=== PATIENT | female | born 1990 | race Caucasian/White ===

== ENCOUNTER → 2017-03-05 | Outpatient (CLI) | payer OTHER ==
--- NOTE | 2017-03-05 13:06 | CR ---
EXAMINATION: Two-view chest (PA and Lateral views). HISTORY: Asthma. FINDINGS: The trachea is midline. The cardiomediastinal silhouette is within normal limits. No pulmonary infil trates, effusions or pneumothorax. Osseous structures appear unremarkable. IMPRESSION: No acute cardiopulmonary process.
== END ==
LOC: MW.CHFP 10:52
PROVIDERS: ATTEND Emergency Medicine
DX: J45.40 Moderate persistent asthma, uncomplicated (principal); R50.9 Fever, unspecified
CPT/HCPCS: 36415; 71020; 71020-26; 85025

== ENCOUNTER 2017-11-03 21:21 | Emergency (ER) | payer OTHER ==
--- NOTE | 2017-11-03 21:40 | EDM.PDOC ---
ED HPI GENERAL MEDICAL PROBLEM - General Chief Complaint: Respiratory Problem Stated Complaint: PT HAS DIFFICULTY BREATHING Time Seen by Provider: 11/03/17 21:39 Source of Information: Reports: Patient History Limitations: Reports: No Limitations - History of Present Illness INITIAL COMMENTS - FREE TEXT/NARRATIVE: HISTORY AND PHYSICAL: History of present illness: 27-year-old female presenting to the emergency department with a chief complaint of shortness of breath with past medical history of asthma. Patient states the past 2 days she has had increasing shortness breath. She does take Symbicort as well as her rescue inhaler and a nebulizer. She states that today it just seemed to be getting worse so she came into the emergency department. She has no other medical issues and states it she has been feeling well otherwise. She denies any nausea, vomiting, diarrhea, fever, chest pain, palpitations, syncopal episodes, or focal neurologic episodes. Patient was on oxygen eating 92% on room air when presenting to emergency room. Review of systems: As per history of present illness and below otherwise all systems reviewed and negative. Past medical history: As per history of present illness and as reviewed below otherwise noncontributory. Surgical history: As per history of present illness and as reviewed below otherwise noncontributory. Social history: No reported history of drug or alcohol abuse. Family history: As per history of present illness and as reviewed below otherwise noncontributory. Physical exam: HEENT: Atraumatic, normocephalic, pupils reactive, negative for conjunctival pallor or scleral icterus, mucous membranes moist, throat clear, neck supple, nontender, trachea midline. Lungs: Diffuse wheezing heard throughout all lung rich. Decreased air movement , normal respiratory effort. No signs of cyanosis. Heart: S1S2, regular, negative for clicks, rubs, or JVD. Abdomen: Soft, nondistended, nontender. Negative for masses or hepatosplenomegaly. Negative for costovertebral tenderness. Pelvis: Stable nontender. Genitourinary: Deferred. Rectal: Deferred. Extremities: Atraumatic, negative for cords or calf pain. Neurovascular unremarkable. Neuro: Awake, alert, oriented. Cranial nerves II through XII unremarkable. Cerebellum unremarkable. Motor and sensory unremarkable throughout. Exam nonfocal. Diagnostics: [] Therapeutics: DuoNeb and 125 mg Solu-Medrol Impression: Acute Asthma exacerbation After given one treatment of DuoNeb as well as 25 mg Solu-Medrol patient wheezing had improved dramatically. Her oxygen saturation was 93% on oxygen ORA and felt much improved. She does have an appointment with her primary care physician Dr. Willard tomorrow. I did give her prescription for prednisone 40 mg by mouth daily 4 days. Instructed her to return to the emergency department if she had any future symptoms. Patient was discharged in good condition with follow-up instructions and prescription for prednisone. The following information is given to patients seen in the emergency department who are being discharged to home. This information is to outline your options for follow-up care. We provide all patients seen in our emergency department with a follow-up referral. The need for follow-up, as well as the timing and circumstances, are variable depending upon the specifics of your emergency department visit. If you don't have a primary care physician on staff, we will provide you with a referral. We always advise you to contact your personal physician following an emergency department visit to inform them of the circumstance of the visit and for follow-up with them and/or the need for any referrals to a consulting specialist. The emergency department will also refer you to a specialist when appropriate. This referral assures that you have the opportunity for follow-up care with a specialist. All of these measure are taken in an effort to provide you with optimal care, which includes your follow-up. Under all circumstances we always encourage you to contact your private physician who remains a resource for coordinating your care. When calling for follow-up care, please make the office aware that this follow-up is from your recent emergency room visit. If for any reason you are refused follow-up, please contact the [facility] Emergency Department at and asked to speak to the emergency department charge nurse. [facility] [address] [place] [id number] Plan: [] Definitive disposition and diagnosis as appropriate pending reevaluation and review of above. chest area Pain Score (Numeric/FACES): 5 - Related Data Allergies Allergy/AdvReac Type Severity Reaction Status Date / Time No Known Allergies Allergy Verified 11/03/17 21:28 Home Meds: Home Meds Albuterol [Proventil HFA] 2 puff INH ASDIRECTED PRN 06/25/14 [History] Budesonide/Formoterol [Symbicort 160-4.5 MCG] 2 puff INH BID 06/25/14 [History] Prednisone [IJD: predniSONE] 40 mg PO WITHBREAKFAST #10 tab 11/03/17 [Rx] Past Medical History - Past Health History Medical/Surgical History: Denies Medical/Surgical History HEENT History: Reports: None Cardiovascular History: Reports: None Respiratory History: Reports: Asthma Gastrointestinal History: Reports: None Genitourinary History: Reports: None Musculoskeletal History: Reports: None Neurological History: Reports: None Psychiatric History: Reports: None Endocrine/Metabolic History: Reports: None Hematologic History: Reports: None Immunologic History: Reports: None Oncologic (Cancer) History: Reports: None Dermatologic History: Reports: None - Infectious Disease History Infectious Disease History: Reports: None - Past Surgical History Head Surgeries/Procedures: Reports: None Social & Family History - Family History Family Medical History: Noncontributory - Tobacco Use Smoking Status *Q: Never Smoker Years of Tobacco use: 4 - Caffeine Use Caffeine Use: Reports: Soda - Alcohol Use Days Per Week of Alcohol Use: 0 - Recreational Drug Use Recreational Drug Use: No ED ROS GENERAL - Review of Systems Review Of Systems: See Below ED EXAM, GENERAL - Physical Exam Exam: See Below Course - Vital Signs Last Recorded V/S: Last Vital Signs Temp 97 F 11/03/17 21:28 Pulse 106 H 11/03/17 22:08 Resp 19 11/03/17 22:08 BP 110/91 H 11/03/17 22:08 Pulse Ox 93 L 11/03/17 22:08 - Orders/Labs/Meds Orders: Active Orders 24 hr Category Date Time Status RT Aerosol Therapy [RC] ASDIRECTED Care 11/03/17 21:47 Active Meds: Medications Discontinued Medications Generic Name Dose Route Start Last Admin Trade Name Freq PRN Reason Stop Dose Admin Albuterol/Ipratropium 3 ml 11/03/17 21:46 11/03/17 21:58 Duoneb 3.0-0.5 Mg/3 Ml NEB 11/03/17 21:47 3 ml ONETIME ONE Administration Methylprednisolone Sodium Succinate 125 mg 11/03/17 21:46 11/03/17 21:58 Solu-Medrol IM 11/03/17 21:47 Not Given ONETIME ONE Methylprednisolone Sodium Succinate 125 mg 11/03/17 21:51 11/03/17 22:00 Solu-Medrol IVPUSH 11/03/17 21:52 Not Given ONETIME ONE Methylprednisolone Sodium Succinate 125 mg 11/03/17 21:59 11/03/17 22:00 Solu-Medrol IM 11/03/17 22:00 125 mg ONETIME ONE Administration Departure - Departure Time of Disposition: 22:24 Disposition: Home, Self-Care 01 Condition: Good Clinical Impression: Hypoxemia, Asthma exacerbation - Discharge Information Prescriptions: Prednisone [IJD: predniSONE] 40 mg PO WITHBREAKFAST #10 tab Referrals: PCP,None [Primary Care Provider] - Forms: ED Department Discharge - My Orders Last 24 Hours: My Active Orders 11/03/17 21:47 RT Aerosol Therapy [RC] ASDIRECTED - Assessment/Plan Last 24 Hours: My Active Orders 11/03/17 21:47 RT Aerosol Therapy [RC] ASDIRECTED
[2017-11-03] MEDS ORDERED: methylPREDNISolone Sodium Succinate 40 MG/1 ML SDV IM ONE (21:46)
[2017-11-03] MEDS ORDERED: Albuterol/Ipratropium 3.0-0.5 MG/3 ML Neb Soln NEB ONE (21:46)
[2017-11-03] MEDS: methylPREDNISolone Sodium Succinate 125 MG/2 ML SDV IVPUSH ONE ×2 (21:58→22:00)
[2017-11-03] MEDS ORDERED: methylPREDNISolone Sodium Succinate 125 MG/2 ML SDV IM ONE (21:59)
== END 2017-11-03 22:49 | disposition home or self-care (01) ==
LOC: MW.ED 21:21
DX: J45.901 Unspecified asthma with (acute) exacerbation (principal)
CPT/HCPCS: 94640; 96372; 99283; J2930

== ENCOUNTER 2022-09-25 08:17 | Inpatient (IN) | payer BC ==
[2022-09-25] MEDS ORDERED: Sodium Chloride 0.9% 10 ML Syringe FLUSH PRN (08:26)
[2022-09-25] MEDS ORDERED: Misoprostol 200 MCG Tab PO PRN (08:26)
[2022-09-25] MEDS ORDERED: Carboprost Tromethamine 250 MCG/1 ML Amp IM PRN (08:26)
[2022-09-25] MEDS ORDERED: Lidocaine 1% 50 ML MDV INJECT PRN (08:26)
[2022-09-25] MEDS ORDERED: Sodium Chloride 0.9% 2.5 ML Syringe FLUSH PRN (08:26)
[2022-09-25] MEDS ORDERED: Methylergonovine 0.2 MG/1 ML Amp IM PRN (08:26)
[2022-09-25] MEDS ORDERED: Butorphanol 1 MG/ML SDV IVPUSH PRN (08:26)
[2022-09-25] MEDS ORDERED: Tranexamic Acid 1,000 MG in Sodium Chloride 0.9% 100 ML IV PRN (08:26)
[2022-09-25] MEDS ORDERED: Sodium Chloride 0.9% 20 ML SDV IV PRN (08:26)
[2022-09-25] MEDS ORDERED: Water For Irrigation,Sterile 1,000 ML Container IRR PRN (08:26)
[2022-09-25] MEDS ORDERED: Oxytocin/0.9 % Sodium Chloride 30 UNIT/500 ML BAG IV SCH ×2 (08:30→08:45)
[2022-09-25] MEDS ORDERED: Terbutaline 1 MG/ML SDV SUBCUT PRN (08:42)
[2022-09-25] MEDS ORDERED: Misoprostol 25 MCG (1/4 of 100 MCG) Tab VAG PRN (08:42)
[2022-09-25] MEDS ORDERED: Misoprostol 25 MCG (1/4 of 100 MCG) Tab PO PRN (08:42)
[2022-09-25] MEDS: Lactated Ringers 1,000 ML IV SCH ×2 (11:59→12:46)
[2022-09-25] MEDS ORDERED: Ropivacaine/PF 400 MG/200 ML PCA ONE (12:10)
[2022-09-25] MEDS ORDERED: Bupivacaine 0.5% 10 ML SDV ONE (12:10)
[2022-09-25] MEDS ORDERED: Phenylephrine HCl In 0.9% NaCl 1 MG/10 ML Vial IVPUSH PRN (12:39)
[2022-09-25] MEDS ORDERED: ePHEDrine 50 MG/ML SDV IVPUSH PRN ×2 (12:39)
[2022-09-25] MEDS ORDERED: Ropivacaine HCl/PF 400 MG in Premix Bag 1 BAG EPIDUR SCH (12:45)
[2022-09-25] MEDS ORDERED: Phenylephrine HCl In 0.9% NaCl 1 MG/10 ML Vial IVPUSH SCH (12:45)
[2022-09-25] MEDS ORDERED: Lanolin 100% Cream 7 GM Tube TOP PRN (14:40)
[2022-09-25] MEDS ORDERED: Bisacodyl 10 MG Supp RECTAL PRN (14:40)
[2022-09-25] MEDS ORDERED: Acetaminophen 500 MG Tab PO PRN ×2 (14:40)
[2022-09-25] MEDS ORDERED: Docusate Sodium 100 MG Cap PO PRN (14:40)
[2022-09-25] MEDS ORDERED: Ibuprofen 400 MG Tab PO PRN (14:40)
[2022-09-25] MEDS ORDERED: Witch Hazel Medicated Pads 40/Jar TOP PRN (14:40)
[2022-09-25] MEDS ORDERED: oxyCODONE 5 MG Tab PO PRN (14:40)
[2022-09-25] MEDS ORDERED: Benzocaine/Menthol 20%-0.5% Spray 78 GM Cannister TOP PRN (14:40)
[2022-09-25] MEDS: Ibuprofen 800 MG Tab PO PRN (20:12)
[2022-09-26] MEDS: Ibuprofen 800 MG Tab PO PRN (03:28)
== END 2022-09-26 18:45 | disposition home or self-care (01) | DRG 560 ==
LOC: MW.OBCHECK 08:17 → MW.OB 08:19 → MW.OBCHECK 08:25 → MW.OB 08:26 → OBSVTOIN 14:40 → MW.OB 20:30
PROVIDERS: ADMIT Obstetrics & Gynecology; ATTEND Obstetrics & Gynecology
PROC: 10E0XZZ Delivery of Products of Conception, External Approach (ICD-10-PCS; principal; 2022-09-25)
PROC: 3E0P7VZ Introduction of Hormone into Female Reproductive, Via Natural or Artificial Opening (ICD-10-PCS; 2022-09-25)
PROC: 10907ZC Drainage of Amniotic Fluid, Therapeutic from Products of Conception, Via Natural or Artificial Opening (ICD-10-PCS; 2022-09-25)
PROC: 3E0R3BZ Introduction of Anesthetic Agent into Spinal Canal, Percutaneous Approach (ICD-10-PCS; 2022-09-25)
DX: O99.52 Diseases of the respiratory system complicating childbirth (principal); Z37.0 Single live birth; J45.909 Unspecified asthma, uncomplicated; Z20.822 Contact with and (suspected) exposure to COVID-19; Z88.1 Allergy status to other antibiotic agents; Z3A.39 39 weeks gestation of pregnancy; Z86.16 Personal history of COVID-19
CPT/HCPCS: 36415; 51701; 59025; 59409; 85014; 85018; 85027; 86592; 86850; 86900; 86901; A9270-GY; J2590; J2795; J3490; J7120; U0002